=== PATIENT | male | born 1975 | race Caucasian/White ===

== ENCOUNTER 2021-01-31 20:18 | Emergency (ER) | payer BC ==
[~2021-01-31] VITALS: Ht 182.9 cm; Wt 102.1 kg
[2021-01-31 20:19] VITALS: BP 142/92
--- NOTE | 2021-01-31 20:30 | NUR ---
PATIENT BIBSLEF C/O RIGHT 5TH TOE POSSIBLE DISLOCATION. PATIENT IS A/OX 4, RR EVEN AND UNLABORED, NO SIGN NOTED. PATIENT RESTING IN BED, VSS.
--- NOTE | 2021-01-31 20:42 | NUR ---
RAD AT BEDSIDE
[2021-01-31] MEDS ORDERED: IBUPROFEN 600 MG TABLET PO ONE (21:30)
[2021-01-31] MEDS ORDERED: IBUP-1957 PO (21:42)
[2021-01-31] MEDS ORDERED: HYDR-4209 PO (21:42)
[2021-01-31] MEDS ORDERED: IBUPROFEN 600 MG TABLET ONE (21:53)
== END 2021-01-31 22:00 | disposition home or self-care (01) ==
LOC: ER 20:18
DX: S92.511A Displaced fracture of proximal phalanx of right lesser toe(s), initial encounter for closed fracture (principal); W22.8XXA Striking against or struck by other objects, initial encounter; Y93.01 Activity, walking, marching and hiking; Y92.098 Other place in other non-institutional residence as the place of occurrence of the external cause; Y99.8 Other external cause status
CPT/HCPCS: 73660-TC